=== PATIENT | female | born 1985 | race Caucasian/White ===

== ENCOUNTER 2020-06-17 19:47 | Inpatient (IN) | payer OTHER ==
[2020-06-17] MEDS ORDERED: Ondansetron 4 MG/2 ML SDV IVPUSH PRN (21:38)
[2020-06-17] MEDS ORDERED: Sodium Chloride 0.9% 10 ML Syringe FLUSH PRN (21:38)
[2020-06-17] MEDS ORDERED: Nalbuphine 10 MG/1 ML Vial IVPUSH PRN (21:38)
[2020-06-17] MEDS ORDERED: Oxytocin/Lactated Ringers 10 UNIT/1,000 ML BAG IV SCH (21:45)
--- NOTE | 2020-06-17 22:06 | PCM.LDHP ---
L&D History of Present Illness - General Date of Service: 06/17/20 Admit Problem/Dx: Patient Status Order with Admit Dx/Problem 06/17/20 20:07 Patient Status [ADT] Routine 06/17/20 21:38 Patient Status [ADT] Routine Admission Diagnosis/Problem Admission Diagnosis/Problem Source of Information: Patient History Limitations: Reports: No Limitations - History of Present Illness Introduction:: Patient at 34 y/o at 38 2/7 wks who presents with SROM. Happened at 1830. Doing well. Some contractions. Picking up in intensity - Related Data Allergies/Adverse Reactions: Allergies Allergy/AdvReac Type Severity Reaction Status Date / Time No Known Allergies Allergy Verified 01/28/19 08:25 Home Medications: Home Meds Pnv No.95/Ferrous Fum/Folic AC [ Caplet] 1 tab PO DAILY 01/28/19 [History] miSOPROStoL [Cytotec] 400 mcg PO ONETIME #2 tablet 01/28/19 [Rx] oxyCODONE HCl/Acetaminophen [Percocet 5-325 mg Tablet] 1 - 2 each PO Q4H PRN #14 tablet 01/28/19 [Rx] Past Medical History - Past Health History Medical/Surgical History: Denies Medical/Surgical History - Past Surgical History Other Surgical History Comment: No past surgical history Social & Family History - Tobacco Use Tobacco Use Status *Q: Never Tobacco User - Caffeine Use Caffeine Use: Reports: Coffee - Alcohol Use Alcohol Use History: No - Recreational Drug Use Recreational Drug Use: No - Living Situation & Occupation Living situation: Reports: H&P Review of Systems - Review of Systems: Review Of Systems: See Below General: Reports: No Symptoms Pulmonary: Reports: No Symptoms Cardiovascular: Reports: No Symptoms Gastrointestinal: Reports: No Symptoms Genitourinary: Reports: No Symptoms Musculoskeletal: Reports: No Symptoms Psychiatric: Reports: No Symptoms Neurological: Reports: No Symptoms L&D Exam - Exam Exam: See Below - Vital Signs Weight: 74.191 kg - OB Specific Contraction Intensity: Moderate Movement: Active Heart Tones: Present Heart Tones per Min: 145 Heart Rate (FHR) Variability: Moderate (6-25 bmp) Presentation: Vertex - Rodney Score Rodney Score Cervix Position: Anterior Rodney Score Consistency: Soft Rodney Score Effacement: >80% Rodney Score Dilation: 1-2 cm Rodney Score 's Station: -2 Rodney Score Total: 9 - Exam General: Alert, Oriented, Cooperative Lungs: Clear to Auscultation, Normal Respiratory Effort Cardiovascular: Regular Rate, Regular Rhythm GI/Abdominal Exam: Soft, Non-Tender Genitourinary: Normal external exam Extremities: Normal Inspection Skin: Warm, Dry, Intact - Patient Data Result Diagrams: 06/17/20 21:55 - Problem List (1) 38 weeks gestation of SNOMED Code(s): 64340528 ICD Code: Z3A.38 - 38 WEEKS GESTATION OF Status: Acute Current Visit: Yes (2) Spontaneous rupture of amniotic membranes SNOMED Code(s): 134697203 ICD Code: [id number] - Status: Acute Current Visit: Yes Problem List Initiated/Reviewed/Updated: Yes Orders Last 24hrs: Active Orders 24 hr Category Date Time Status Patient Status [ADT] Routine ADT 06/17/20 20:07 Active Patient Status [ADT] Routine ADT 06/17/20 21:38 Active Activity as Tolerated [RC] PFP Care 06/17/20 21:38 Active Communication Order [RC] ASDIRECTED Care 06/17/20 21:38 Active Heart Tones [RC] ASDIRECTED Care 06/17/20 21:39 Active Non Stress Test [RC] PER UNIT ROUTINE Care 06/17/20 20:07 Active Notify Provider [RC] PFP Care 06/17/20 21:38 Active Notify Provider [RC] PRN Care 06/17/20 21:38 Active Peripheral IV Care [RC] . DIRECTED Care 06/17/20 21:39 Active Vital Signs [RC] PER UNIT ROUTINE Care 06/17/20 20:07 Active Regular Diet [DIET] Diet 06/18/20 Breakfast Active AMNISURE RUPTURE MEMBRAN [BF] Stat Lab 06/17/20 20:07 Ordered CBC WITH AUTO DIFF [HEME] Stat Lab 06/17/20 21:55 Received RAPID PLASMA REAGIN,RPR [CHEM] Routine Lab 06/17/20 21:55 Received Lactated Ringers [Ringers, Lactated] 1,000 ml Med 06/17/20 21:45 Active IV ASDIRECTED Nalbuphine [Nubain] Med 06/17/20 21:38 Active 10 mg IVPUSH Q2H PRN Ondansetron [Zofran] Med 06/17/20 21:38 Active 4 mg IVPUSH Q4H PRN Oxytocin/Lactated Ringers [Pitocin in LR 10 Units/1,000 Med 06/17/20 21:45 Active ML] 10 unit in 1,000 ml IV TITRATE Sodium Chloride 0.9% [Saline Flush] Med 06/17/20 21:38 Active 10 ml FLUSH ASDIRECTED PRN Electronic Heart Tones Ext w TOCO [WOMSER] Oth 06/17/20 21:38 Ordered Routine Electronic Heart Tones Internal [WOMSER] Per Unit Oth 06/17/20 21:38 Ordered Routine Peripheral IV Insertion Adult [OM.PC] Routine Oth 06/17/20 21:38 Ordered Resuscitation Status Routine Resus Stat 06/17/20 20:07 Ordered Medication Orders Lactated Ringer's (Ringers, Lactated) 1,000 mls @ 100 mls/hr IV ASDIRECTED SANTI Oxytocin/Lactated Ringer's (Pitocin In Lr 10 Units/1,000 Ml) 10 unit in 1,000 mls @ 12 mls/hr IV TITRATE SANTI; Protocol Nalbuphine HCl (Nubain) 10 mg IVPUSH Q2H PRN PRN Reason: Pain Ondansetron HCl (Zofran) 4 mg IVPUSH Q4H PRN PRN Reason: Nausea/Vomiting Sodium Chloride (Saline Flush) 10 ml FLUSH ASDIRECTED PRN PRN Reason: Keep Vein Open Assessment/Plan Comment:: * Labs done * Previously had COVID at 32 weeks, no need for re-testing * GBS negative, no need for antibiotics * Pain management per patient preference * Anticipate
[2020-06-17] MEDS: Lactated Ringers 1,000 ML IV SCH (23:40)
[2020-06-18] MEDS ORDERED: Bupivacaine 0.25% 10 ML SDV ONE
[2020-06-18] MEDS ORDERED: ePHEDrine 50 MG/ML SDV IVPUSH PRN (00:04)
[2020-06-18] MEDS ORDERED: diphenhydrAMINE 50 MG/ML SDV IVPUSH PRN (00:04)
[2020-06-18] MEDS ORDERED: fentaNYL 100 MCG/2 ML SDV EPIDUR PRN (00:04)
[2020-06-18] MEDS: Bupivacaine/fentaNYL/NS 100 ML Bag EPIDUR PRN ×2 (00:30→08:59)
[2020-06-18] MEDS: Lactated Ringers 1,000 ML IV SCH ×3 (00:41→08:13)
--- NOTE | 2020-06-18 00:55 | PCM.PREANE ---
Preanesthetic Assessment - Procedure Proposed Procedure: Labor Epidural - Anesthesia/Transfusion/Family Hx Anesthesia History: No Prior Anesthesia Family History of Anesthesia Reaction: No - Review of Systems General: No Symptoms Pulmonary: No Symptoms Cardiovascular: No Symptoms Gastrointestinal: Abdominal Pain (Uterine) Neurological: No Symptoms Other: Reports: None (Sciatic symptoms earlier in the pregnacny. ) - Physical Assessment Height: 1.6 m Weight: 74.191 kg ASA Class: 2 Mental Status: Alert & Oriented x3 Airway Class: Mallampati = 1 Dentition: Reports: Normal Dentition Thyro-Mental Finger Breadths: 3 Mouth Opening Finger Breadths: 3 ROM/Head Extension: Full Lungs: Clear to Auscultation, Normal Respiratory Effort Cardiovascular: Regular Rate, Regular Rhythm - Lab Values: Laboratory Last Values WBC 10.61 K/mm3 (3.98-10.04) H 06/17/20 21:55 RBC 3.96 M/mm3 (3.98-5.22) L 06/17/20 21:55 Hgb 12.2 gm/dl (11.2-15.7) 06/17/20 21:55 Hct 36.9 % (34.1-44.9) 06/17/20 21:55 MCV 93.2 fl (79.4-94.8) D 06/17/20 21:55 MCH 30.8 pg (25.6-32.2) 06/17/20 21:55 MCHC 33.1 g/dl (32.2-35.5) 06/17/20 21:55 RDW Std Deviation 43.5 fL (36.4-46.3) 06/17/20 21:55 Plt Count 144 K/mm3 (182-369) L 06/17/20 21:55 MPV 11.8 fl (9.4-12.3) 06/17/20 21:55 Neut % (Auto) 64.3 % (34.0-71.1) 06/17/20 21:55 Lymph % (Auto) 23.8 % (19.3-51.7) 06/17/20 21:55 [place] % (Auto) 10.3 % (4.7-12.5) 06/17/20 21:55 Eos % (Auto) 1.2 (0.7-5.8) 06/17/20 21:55 Baso % (Auto) 0.1 % (0.1-1.2) 06/17/20 21:55 Neut # (Auto) 6.83 K/mm3 (1.56-6.13) H 06/17/20 21:55 Lymph # (Auto) 2.52 K/mm3 (1.18-3.74) 06/17/20 21:55 [place] # (Auto) 1.09 K/mm3 (0.24-0.36) H 06/17/20 21:55 Eos # (Auto) 0.13 K/mm3 (0.04-0.36) 06/17/20 21:55 Baso # (Auto) 0.01 K/mm3 (0.01-0.08) 06/17/20 21:55 - Allergies Allergies/Adverse Reactions: Allergies Allergy/AdvReac Type Severity Reaction Status Date / Time No Known Allergies Allergy Verified 01/28/19 08:25 - Acknowledgements Anesthesia Type Planned: Epidural Pt an Appropriate Candidate for the Planned Anesthesia: Yes Alternatives and Risks of Anesthesia Discussed w Pt/Guardian: Yes Pt/Guardian Understands and Agrees with Anesthesia Plan: Yes PreAnesthesia Questionnaire - Past Health History Medical/Surgical History: Denies Medical/Surgical History - HOME MEDS Home Medications: Home Meds Pnv No.95/Ferrous Fum/Folic AC [ Caplet] 1 tab PO DAILY 01/28/19 [History] miSOPROStoL [Cytotec] 400 mcg PO ONETIME #2 tablet 01/28/19 [Rx] oxyCODONE HCl/Acetaminophen [Percocet 5-325 mg Tablet] 1 - 2 each PO Q4H PRN #14 tablet 01/28/19 [Rx] - CURRENT (IN HOUSE) MEDS Current Meds: Current Medications Diphenhydramine HCl (Benadryl) 25 mg IVPUSH Q6H PRN PRN Reason: pruritis Ephedrine Sulfate (Ephedrine Sulfate) 5 mg IVPUSH ASDIRECTED PRN PRN Reason: Hypotension Fentanyl (Sublimaze) 100 mcg EPIDUR Q3H PRN PRN Reason: Pain Last Admin: 06/18/20 00:31 Dose: 100 mcg Documented by: Fentanyl/Bupivacaine HCl (Fentanyl/Bupivacaine/Ns 2 Mcg-0.125% 100 Ml) 100 ml EPIDUR ASDIRECTED PRN PRN Reason: Pain Lactated Ringer's (Ringers, Lactated) 1,000 mls @ 100 mls/hr IV ASDIRECTED SANTI Last Admin: 06/17/20 23:40 Dose: 999 mls/hr Documented by: Oxytocin/Lactated Ringer's (Pitocin In Lr 10 Units/1,000 Ml) 10 unit in 1,000 mls @ 12 mls/hr IV TITRATE SANTI; Protocol Nalbuphine HCl (Nubain) 10 mg IVPUSH Q2H PRN PRN Reason: Pain Ondansetron HCl (Zofran) 4 mg IVPUSH Q4H PRN PRN Reason: Nausea/Vomiting Sodium Chloride (Saline Flush) 10 ml FLUSH ASDIRECTED PRN PRN Reason: Keep Vein Open
[2020-06-18] MEDS ORDERED: Misoprostol 200 MCG Tab ONE (12:35)
[2020-06-18] MEDS ORDERED: Misoprostol 200 MCG Tab PO STA (12:51)
--- NOTE | 2020-06-18 12:51 | PCM.DEL ---
L & D Note - General Info Date of Service: 06/18/20 - Delivery Note Labor: Spontaneous Delivery Outcome: Livebirth Delivery Method: Spontaneous Vaginal Delivery-Single Delivery Mode: Vacuum Extraction Presentation: Left Occiput Anterior (TONY) Nuchal Cord: None Anesthesia Type: Epidural Amniotic Fluid Description: Clear Episiotomy Type: None Laceration: 3rd Degree Suture type: Vicryl Suture size: 2-0 Placenta: Intact, Spontaneous Cord: 3 Vessels Estimated Blood Loss: 250 Resuscitation Needed: Yes [place]: Bulb Syringe, Stimulated, Warmed, [place] Used, Warmer Used Delivery Comments (Free Text/Narrative):: The patient was found to be complete and began pushing. After about 4.5 hours of pushing she became fatigued. Sterile vaginal exam complete/complete/+3 station. head in TONY presentation. Maternal pushing effort was good and the pelvis was felt to be adequate for an instrument assisted delivery. Given maternal exhaustion the decision was made to proceed with vacuum assisted vaginal delivery. The mushroom cup was placed without difficulty with care to avoid the vaginal side porter at 1225. Total pressure applied 550 mm Hg. Total pop offs 0. With two contractions head delivered. Suction was removed following delivery of the head. No nuchal cord. The remainder of the delivered without difficulty at 1228. placed on maternal abdomen. Cord clamped and cut. Cord blood obtained. Placenta allowed time to separate and expelled intact. Slight poor tone noted and so given 600 mcg of buccal cytotec. Inspection of the perineum following delivery with 3rd degree la ceration. Not complete transection of rectal sphincter, but disruption of capsule. This was reinforced with several interrupted sutures of 0 vicryl. Remaining portion of laceration repaired with a 2-0 Vicryl in typical running fashion Vacuum Extractor Progress Note - Alternative Labor Strategies Considered Alternative Labor Strategies Considered:: Reports: Yes Strategies Considered:: Reports: Contraction Intensity Adequate, Position Changes Used to Facilitate Rotation & Descent, Empty Bladder Indications Considered:: Reports: Yes Indications:: Reports: Prolonged 2nd Stage Time Out:: Reports: Yes - Patient Prepared Patient Prepared:: Reports: Yes Informed Consent:: Reports: Yes, Verbal Risks: Reports: Yes Risks Include:: Reports: Laceration, Shoulder Dystocia, Maternal Injury Anesthesia/Analgesia Adequate:: Reports: Yes - Probability of Success High Probability of Success:: Reports: Yes Weight Estimated:: Reports: AGA Patient Diabetic:: Reports: No Pelvis Adequate:: Reports: Yes Position:: TONY Asynclitic:: Reports: No Station:: +3 - Application Time Maximum Application Time & Number of Pop-Offs Predetermined:: Reports: Yes Maximum Pressure Maintained in [place] (cm Hg):: 550 Total Application Time (min): *max=20min: 3 Number of Times Cup Disengaged:: 0 Type of Vacuum Used:: Reports: Cup: Mushroom type Vacuum Extraction: Successful - Exit Strategy Exit strategy available:: Reports: Yes and resuscitation teams readily available:: Reports: Yes - General Info Date of Service: 06/18/20 - Patient Data Vitals - Most Recent: Last Vital Signs Temp 36.6 C 06/17/20 20:07 Pulse 83 06/17/20 20:07 Resp 15 06/17/20 20:07 BP 126/77 06/17/20 20:07 Pulse Ox 98 06/17/20 20:07 Weight - Most Recent: 74.191 kg - Problem List & Annotations (1) 38 weeks gestation of SNOMED Code(s): 90559677 Code(s): Z3A.38 - 38 WEEKS GESTATION OF Status: Acute Current Visit: Yes (2) Spontaneous rupture of amniotic membranes SNOMED Code(s): 229209520 Code(s): KWL3521 - Status: Acute Current Visit: Yes (3) Maternal exhaustion complicating labor and delivery SNOMED Code(s): 047318840 Code(s): O75.81 - MATERNAL EXHAUSTION COMPLICATING LABOR AND DELIVERY Status: Acute Current Visit: Yes (4) Vacuum-assisted vaginal delivery SNOMED Code(s): 50927855451647398 Code(s): Z37.9 - OUTCOME OF DELIVERY, UNSPECIFIED Status: Acute Current Visit: Yes - Problem List Review Problem List Initiated/Reviewed/Updated: Yes - My Orders Last 24 Hours: My Active Orders 06/17/20 20:07 Patient Status [ADT] Routine Vital Signs [RC] 09,15,21,03 AMNISURE RUPTURE MEMBRAN [BF] Stat Resuscitation Status Routine 06/17/20 21:38 Patient Status [ADT] Routine Activity as Tolerated [RC] PFP Communication Order [RC] ASDIRECTED Notify Provider [RC] PFP Notify Provider [RC] PRN Nalbuphine [Nubain] 10 mg IVPUSH Q2H PRN Ondansetron [Zofran] 4 mg IVPUSH Q4H PRN Sodium Chloride 0.9% [Saline Flush] 10 ml FLUSH ASDIRECTED PRN Electronic Heart Tones Ext w TOCO [WOMSER] Routine Electronic Heart Tones Internal [WOMSER] Per Unit Routine Peripheral IV Insertion Adult [OM.PC] Routine 06/17/20 21:39 Peripheral IV Care [RC] Q2HR 06/17/20 21:45 Lactated Ringers [Ringers, Lactated] 1,000 ml IV ASDIRECTED Oxytocin/Lactated Ringers [Pitocin in LR 10 Units/1,000 ML] 10 unit in 1,000 ml IV TITRATE 06/17/20 21:55 RAPID PLASMA REAGIN,RPR [CHEM] Routine 06/18/20 Breakfast Regular Diet [DIET] - Assessment Assessment:: PPD#0 - Plan Plan:: * Routine cares * Breast feeding * Discharge home in 1-2 days
[2020-06-18] MEDS ORDERED: Acetaminophen 325 MG Tab PO PRN (13:26)
[2020-06-18] MEDS ORDERED: Witch Hazel Medicated Pads 40/Jar TOP PRN (13:26)
[2020-06-18] MEDS ORDERED: Benzocaine/Menthol 20%-0.5% Spray 56 GM Canister TOP PRN (13:26)
[2020-06-18] MEDS: Ibuprofen 600 MG Tab PO PRN ×2 (16:04→20:14)
[2020-06-19] MEDS: Ibuprofen 600 MG Tab PO PRN ×6 (00:35→22:32)
--- NOTE | 2020-06-19 06:45 | PCM.PNPP ---
- General Info Date of Service: 06/19/20 Functional Status: Reports: Pain Controlled, Tolerating Diet, Ambulating, Urinating - Review of Systems General: Reports: No Symptoms Pulmonary: Reports: No Symptoms Cardiovascular: Reports: No Symptoms Gastrointestinal: Reports: No Symptoms Genitourinary: Reports: No Symptoms Musculoskeletal: Reports: No Symptoms Neurological: Reports: No Symptoms - Patient Data Vital Signs - Most Recent: Last Vital Signs Temp 36.4 C 06/19/20 05:02 Pulse 68 06/19/20 05:02 Resp 15 06/19/20 05:02 BP 109/65 06/19/20 05:02 Pulse Ox 98 06/19/20 05:02 Weight - Most Recent: 74.191 kg I&O - Last 24 Hours: Intake & Output 06/18/20 06/18/20 06/19/20 14:59 22:59 06:59 Intake Total 6120 Output Total 1600 Balance -1600 6120 Lab Results - Last 24 Hours: Laboratory Results - last 24 hr 06/17/20 Range/Units 21:55 RPR Non-reactive (NONREACTIVE) Med Orders - Current: Current Medications Acetaminophen (Tylenol) 650 mg PO Q4H PRN PRN Reason: mild pain or fever Benzocaine/Menthol (Dermoplast Pain Relief [place]) 0 gm TOP ASDIRECTED PRN PRN Reason: Perineal Comfort Measure Last Admin: 06/18/20 14:43 Dose: 1 can Documented by: Docusate Sodium (Colace) 100 mg PO BID PRN PRN Reason: Constipation Ibuprofen (Motrin) 600 mg PO Q4H PRN PRN Reason: Mild pain or fever Last Admin: 06/19/20 04:41 Dose: 600 mg Documented by: Aguila Aguirre) 1 pad TOP ASDIRECTED PRN PRN Reason: Perineal Comfort Measure Last Admin: 06/18/20 14:43 Dose: 1 tub Documented by: Discontinued Medications Diphenhydramine HCl (Benadryl) 25 mg IVPUSH Q6H PRN PRN Reason: pruritis Ephedrine Sulfate (Ephedrine Sulfate) 5 mg IVPUSH ASDIRECTED PRN PRN Reason: Hypotension Fentanyl (Sublimaze) 100 mcg EPIDUR Q3H PRN PRN Reason: Pain Last Admin: 06/18/20 00:31 Dose: 100 mcg Documented by: Fentanyl/Bupivacaine HCl (Fentanyl/Bupivacaine/Ns 2 Mcg-0.125% 100 Ml) 100 ml EPIDUR ASDIRECTED PRN PRN Reason: Pain Last Admin: 06/18/20 08:59 Dose: 100 ml Documented by: Lactated Ringer's (Ringers, Lactated) 1,000 mls @ 100 mls/hr IV ASDIRECTED SANTI Last Admin: 06/18/20 08:13 Dose: 100 mls/hr Documented by: Oxytocin/Lactated Ringer's (Pitocin In Lr 10 Units/1,000 Ml) 10 unit in 1,000 mls @ 12 mls/hr IV TITRATE SANTI; Protocol Last Titration: 06/18/20 12:28 Dose: 83.33 munits/min, 500 mls/hr Documented by: Misoprostol (Cytotec) Confirm Administered Dose 600 mcg .ROUTE .STK-MED ONE Stop: 06/18/20 12:36 Last Admin: 06/18/20 13:23 Dose: Not Given Documented by: Misoprostol (Cytotec) 600 mcg PO NOW STA Stop: 06/18/20 12:52 Last Admin: 06/18/20 12:35 Dose: 600 mcg Documented by: Nalbuphine HCl (Nubain) 10 mg IVPUSH Q2H PRN PRN Reason: Pain Ondansetron HCl (Zofran) 4 mg IVPUSH Q4H PRN PRN Reason: Nausea/Vomiting Sodium Chloride (Saline Flush) 10 ml FLUSH ASDIRECTED PRN PRN Reason: Keep Vein Open - Interaction Infant Disposition, : [place] in Room with Family Interaction: Holding Feeding: Attempted ; Nursed Fair/Poor Support Person: - Recovery Exam Fundal Tone: Firm Fundal Level: At Umbilicus Fundal Placement: Midline Lochia Amount: Small Lochia Color: Rubra/Red Perineum Description: Edematous, Other (see below) Other Perinuem Description: 3rd degree with repair Episiotomy/Laceration: Approximated Bladder Status: Voiding Urinary Elimination: Voided - Exam General: Alert, Oriented, Cooperative GI/Abdominal Exam: Soft, Non-Tender Extremities: Normal Inspection Skin: Warm, Dry, Intact - Problem List & Annotations (1) 38 weeks gestation of SNOMED Code(s): 10501026 Code(s): Z3A.38 - 38 WEEKS GESTATION OF Status: Acute Current Visit: Yes (2) Spontaneous rupture of amniotic membranes SNOMED Code(s): 767726963 Code(s): FCA7273 - Status: Acute Current Visit: Yes (3) Maternal exhaustion complicating labor and delivery SNOMED Code(s): 435220734 Code(s): O75.81 - MATERNAL EXHAUSTION COMPLICATING LABOR AND DELIVERY Status: Acute Current Visit: Yes (4) Vacuum-assisted vaginal delivery SNOMED Code(s): 98450032531662187 Code(s): Z37.9 - OUTCOME OF DELIVERY, UNSPECIFIED Status: Acute Current Visit: Yes - Problem List Review Problem List Initiated/Reviewed/Updated: Yes - My Orders Last 24 Hours: My Active Orders 06/18/20 Lunch Regular Diet [DIET] 06/18/20 13:26 Acetaminophen [TylenoL] 650 mg PO Q4H PRN Benzocaine/Menthol [Dermoplast Pain Relief [place]] See Dose Instructions TOP ASDIRECTED PRN Docusate Sodium [Colace] 100 mg PO BID PRN Ibuprofen [Motrin] 600 mg PO Q4H PRN witch Casi [Tucks] 1 pad TOP ASDIRECTED PRN Heat Therapy [OM.PC] PRN 06/18/20 13:26 Activity as Tolerated [RC] PER UNIT ROUTINE Vital Signs [RC] 03,09,15,21 Assess Lochia [WOMSER] Per Unit Routine Assess Uterine Involution [WOMSER] Per Unit Routine Breast Pump [WOMSER] Per Unit Routine Ice Therapy [OM.PC] Per Unit Routine Perineal Care [OM.PC] Per Unit Routine Peripheral IV Discontinue [OM.PC] Routine Sitz Bath [OM.PC] Per Unit Routine 06/19/20 13:26 Heat Therapy [OM.PC] PRN - Assessment Assessment:: PPD#1 - Plan Plan:: * Routine cares * Breast feeding * Discharge home tomorrow
[2020-06-19] MEDS: Docusate Sodium 100 MG Cap PO PRN ×2 (09:30→22:33)
--- NOTE | 2020-06-19 14:22 | PCM48HPAN ---
Post Anesthesia Note - EVALUATION WITHIN 48HRS OF ANESTHETIC Vital Signs in Normal Range: Yes Patient Participated in Evaluation: Yes Respiratory Function Stable: Yes Airway Patent: Yes Cardiovascular Function Stable: Yes Hydration Status Stable: Yes Pain Control Satisfactory: Yes Nausea and Vomiting Control Satisfactory: Yes Mental Status Recovered: Yes Vital Signs: Last Vital Signs Temp 36.5 C 06/19/20 07:46 Pulse 62 06/19/20 07:46 Resp 16 06/19/20 07:46 BP 114/72 06/19/20 07:46 Pulse Ox 98 06/19/20 07:46
[2020-06-20] MEDS: Ibuprofen 600 MG Tab PO PRN ×2 (04:05→09:55)
--- NOTE | 2020-06-20 06:55 | PCM.DCSUM1 ---
Discharge Summary - Discharge Data Discharge Date: 06/20/20 Discharge Disposition: Home, Self-Care 01 Condition: Good - Referral to Home Health Primary Care Physician: Lulu Richard MD - Discharge Diagnosis/Problem(s) (1) 38 weeks gestation of SNOMED Code(s): 30958139 ICD Code: Z3A.38 - 38 WEEKS GESTATION OF Status: Acute Current Visit: Yes (2) Spontaneous rupture of amniotic membranes SNOMED Code(s): 819342373 ICD Code: CNW5146 - Status: Acute Current Visit: Yes (3) Maternal exhaustion complicating labor and delivery SNOMED Code(s): 670840818 ICD Code: O75.81 - MATERNAL EXHAUSTION COMPLICATING LABOR AND DELIVERY Status: Acute Current Visit: Yes (4) Vacuum-assisted vaginal delivery SNOMED Code(s): 46437941566955254 ICD Code: Z37.9 - OUTCOME OF DELIVERY, UNSPECIFIED Status: Acute Current Visit: Yes - Patient Summary/Data Complications: None Consults: None Recommended Follow-up Testing/Procedures: Follow up in 3 weeks for check Hospital Course: 34 y/o at 38 2/7 wks who presented in labor. Did well. Did require vacuum assistance for delivery after about 4.5 hours of pushing. See delivery note. did well and was discharged home on PPD#2 - Patient Instructions Diet: Regular Diet as Tolerated Activity: As Tolerated Activity, Other: Pelvic rest for 6 weeks Driving: May Drive Today Showering/Bathing: May Shower Showering/Bathing, Other: May Bathe Notify Provider of: Fever, Increased Pain, Swelling and Redness, Drainage, Nausea and/or Vomiting - Discharge Plan *PRESCRIPTION DRUG MONITORING PROGRAM REVIEWED*: No *COPY OF PRESCRIPTION DRUG MONITORING REPORT IN PATIENT TRUPTI: No Home Medications: Home Meds Pnv No.95/Ferrous Fum/Folic AC [ Caplet] 1 tab PO DAILY 01/28/19 [History] Docusate Sodium [Colace] 100 mg PO BID PRN cap 06/19/20 [Rx] Ibuprofen [Motrin] 600 mg PO Q4H PRN tablet 06/19/20 [Rx] Patient Handouts: Care After Vaginal Delivery Referrals: Lulu Richard MD [Primary Care Provider] - (3 weeks for check ) - Discharge Summary/Plan Comment DC Time >30 min.: No - Patient Data Vitals - Most Recent: Last Vital Signs Temp 36.9 C 06/20/20 03:00 Pulse 81 06/20/20 03:00 Resp 16 06/20/20 03:00 BP 123/79 06/20/20 03:00 Pulse Ox 98 06/20/20 03:00 Weight - Most Recent: 74.191 kg I&O - Last 24 hours: Intake & Output 06/19/20 06/19/20 06/20/20 14:59 22:59 06:59 Intake Total 120 Balance 120 Med Orders - Current: Current Medications Acetaminophen (Tylenol) 650 mg PO Q4H PRN PRN Reason: mild pain or fever Benzocaine/Menthol (Dermoplast Pain Relief [place]) 0 gm TOP ASDIRECTED PRN PRN Reason: Perineal Comfort Measure Last Admin: 06/18/20 14:43 Dose: 1 can Documented by: Docusate Sodium (Colace) 100 mg PO BID PRN PRN Reason: Constipation Last Admin: 06/19/20 22:33 Dose: 100 mg Documented by: Ibuprofen (Motrin) 600 mg PO Q4H PRN PRN Reason: Mild pain or fever Last Admin: 06/20/20 04:05 Dose: 600 mg Documented by: Aguila Roldan ([facility]) 1 pad TOP ASDIRECTED PRN PRN Reason: Perineal Comfort Measure Last Admin: 06/18/20 14:43 Dose: 1 tub Documented by: Discontinued Medications Bupivacaine HCl (Sensorcaine-Mpf 0.25%) 10 ml .ROUTE .STK-MED ONE Stop: 06/18/20 00:01 Diphenhydramine HCl (Benadryl) 25 mg IVPUSH Q6H PRN PRN Reason: pruritis Ephedrine Sulfate (Ephedrine Sulfate) 5 mg IVPUSH ASDIRECTED PRN PRN Reason: Hypotension Fentanyl (Sublimaze) 100 mcg EPIDUR Q3H PRN PRN Reason: Pain Last Admin: 06/18/20 00:31 Dose: 100 mcg Documented by: Fentanyl/Bupivacaine HCl (Fentanyl/Bupivacaine/Ns 2 Mcg-0.125% 100 Ml) 100 ml EPIDUR ASDIRECTED PRN PRN Reason: Pain Last Admin: 06/18/20 08:59 Dose: 100 ml Documented by: Lactated Ringer's (Ringers, Lactated) 1,000 mls @ 100 mls/hr IV ASDIRECTED SANTI Last Admin: 06/18/20 08:13 Dose: 100 mls/hr Documented by: Oxytocin/Lactated Ringer's (Pitocin In Lr 10 Units/1,000 Ml) 10 unit in 1,000 mls @ 12 mls/hr IV TITRATE SANTI; Protocol Last Titration: 06/18/20 12:28 Dose: 83.33 munits/min, 500 mls/hr Documented by: Misoprostol (Cytotec) Confirm Administered Dose 600 mcg .ROUTE .STK-MED ONE Stop: 06/18/20 12:36 Last Admin: 06/18/20 13:23 Dose: Not Given Documented by: Misoprostol (Cytotec) 600 mcg PO NOW STA Stop: 06/18/20 12:52 Last Admin: 06/18/20 12:35 Dose: 600 mcg Documented by: Nalbuphine HCl (Nubain) 10 mg IVPUSH Q2H PRN PRN Reason: Pain Ondansetron HCl (Zofran) 4 mg IVPUSH Q4H PRN PRN Reason: Nausea/Vomiting Sodium Chloride (Saline Flush) 10 ml FLUSH ASDIRECTED PRN PRN Reason: Keep Vein Open
--- NOTE | 2020-06-20 06:55 | PCM.PNPP ---
- General Info Date of Service: 06/20/20 Functional Status: Reports: Pain Controlled, Tolerating Diet, Ambulating, Urinating - Review of Systems General: Reports: No Symptoms Pulmonary: Reports: No Symptoms Cardiovascular: Reports: No Symptoms Gastrointestinal: Reports: No Symptoms Genitourinary: Reports: No Symptoms Musculoskeletal: Reports: No Symptoms Neurological: Reports: No Symptoms - Patient Data Vital Signs - Most Recent: Last Vital Signs Temp 36.9 C 06/20/20 03:00 Pulse 81 06/20/20 03:00 Resp 16 06/20/20 03:00 BP 123/79 06/20/20 03:00 Pulse Ox 98 06/20/20 03:00 Weight - Most Recent: 74.191 kg I&O - Last 24 Hours: Intake & Output 06/19/20 06/19/20 06/20/20 14:59 22:59 06:59 Intake Total 120 Balance 120 Med Orders - Current: Current Medications Acetaminophen (Tylenol) 650 mg PO Q4H PRN PRN Reason: mild pain or fever Benzocaine/Menthol (Dermoplast Pain Relief [place]) 0 gm TOP ASDIRECTED PRN PRN Reason: Perineal Comfort Measure Last Admin: 06/18/20 14:43 Dose: 1 can Documented by: Docusate Sodium (Colace) 100 mg PO BID PRN PRN Reason: Constipation Last Admin: 06/19/20 22:33 Dose: 100 mg Documented by: Ibuprofen (Motrin) 600 mg PO Q4H PRN PRN Reason: Mild pain or fever Last Admin: 06/20/20 04:05 Dose: 600 mg Documented by: [place] ([place]) 1 pad TOP ASDIRECTED PRN PRN Reason: Perineal Comfort Measure Last Admin: 06/18/20 14:43 Dose: 1 tub Documented by: Discontinued Medications Bupivacaine HCl (Sensorcaine-Mpf 0.25%) 10 ml .ROUTE .STK-MED ONE Stop: 06/18/20 00:01 Diphenhydramine HCl (Benadryl) 25 mg IVPUSH Q6H PRN PRN Reason: pruritis Ephedrine Sulfate (Ephedrine Sulfate) 5 mg IVPUSH ASDIRECTED PRN PRN Reason: Hypotension Fentanyl (Sublimaze) 100 mcg EPIDUR Q3H PRN PRN Reason: Pain Last Admin: 06/18/20 00:31 Dose: 100 mcg Documented by: Fentanyl/Bupivacaine HCl (Fentanyl/Bupivacaine/Ns 2 Mcg-0.125% 100 Ml) 100 ml EPIDUR ASDIRECTED PRN PRN Reason: Pain Last Admin: 06/18/20 08:59 Dose: 100 ml Documented by: Lactated Ringer's (Ringers, Lactated) 1,000 mls @ 100 mls/hr IV ASDIRECTED SANTI Last Admin: 06/18/20 08:13 Dose: 100 mls/hr Documented by: Oxytocin/Lactated Ringer's (Pitocin In Lr 10 Units/1,000 Ml) 10 unit in 1,000 mls @ 12 mls/hr IV TITRATE SANTI; Protocol Last Titration: 06/18/20 12:28 Dose: 83.33 munits/min, 500 mls/hr Documented by: Misoprostol (Cytotec) Confirm Administered Dose 600 mcg .ROUTE .STK-MED ONE Stop: 06/18/20 12:36 Last Admin: 06/18/20 13:23 Dose: Not Given Documented by: Misoprostol (Cytotec) 600 mcg PO NOW STA Stop: 06/18/20 12:52 Last Admin: 06/18/20 12:35 Dose: 600 mcg Documented by: Nalbuphine HCl (Nubain) 10 mg IVPUSH Q2H PRN PRN Reason: Pain Ondansetron HCl (Zofran) 4 mg IVPUSH Q4H PRN PRN Reason: Nausea/Vomiting Sodium Chloride (Saline Flush) 10 ml FLUSH ASDIRECTED PRN PRN Reason: Keep Vein Open - Interaction Infant Disposition, : Hawks in Room with Family Interaction: Holding Infant Feeding: Attempted ; Nursed Fair/Poor Support Person: - Recovery Exam Fundal Tone: Firm Fundal Level: 1 Fingerbreadths Below Umbilicus Fundal Placement: Midline Lochia Amount: Small Lochia Color: Rubra/Red Perineum Description: Edematous, Other (see below) Other Perinuem Description: 3rd degree with repair Episiotomy/Laceration: Approximated Bladder Status: Voiding Urinary Elimination: Voided - Exam General: Alert, Oriented, Cooperative GI/Abdominal Exam: Soft, Non-Tender Extremities: Normal Inspection Skin: Warm, Dry, Intact - Problem List & Annotations (1) 38 weeks gestation of SNOMED Code(s): 27370756 Code(s): Z3A.38 - 38 WEEKS GESTATION OF Status: Acute Current Visit: Yes (2) Spontaneous rupture of amniotic membranes SNOMED Code(s): 359208327 Code(s): [id number] - Status: Acute Current Visit: Yes (3) Maternal exhaustion complicating labor and delivery SNOMED Code(s): 719010473 Code(s): O75.81 - MATERNAL EXHAUSTION COMPLICATING LABOR AND DELIVERY Status: Acute Current Visit: Yes (4) Vacuum-assisted vaginal delivery SNOMED Code(s): 28611709541020714 Code(s): Z37.9 - OUTCOME OF DELIVERY, UNSPECIFIED Status: Acute Current Visit: Yes - Problem List Review Problem List Initiated/Reviewed/Updated: Yes - My Orders Last 24 Hours: My Active Orders 06/19/20 13:26 Heat Therapy [OM.PC] PRN 06/20/20 06:54 Ready for Discharge [RC] PER UNIT ROUTINE - Assessment Assessment:: PPD#2 - Plan Plan:: * Routine cares * Breast feeding * Discharge home today
[2020-06-20] MEDS: Docusate Sodium 100 MG Cap PO PRN (09:55)
== END 2020-06-20 10:35 | disposition home or self-care (01) | DRG 768 ==
LOC: JD.OBCHECK 19:47 → JD.OB 19:51 → JD.OBCHECK 21:38 → JD.OB 21:39 → OBSVTOIN 06-18 12:28 → JD.OB 06-18 12:29
PROVIDERS: ADMIT Obstetrics & Gynecology; ATTEND Obstetrics & Gynecology
PROC: 10D07Z6 Extraction of Products of Conception, Vacuum, Via Natural or Artificial Opening (ICD-10-PCS; principal; 2020-06-18)
PROC: 0DQR0ZZ Repair Anal Sphincter, Open Approach (ICD-10-PCS; 2020-06-18)
PROC: 3E0R3BZ Introduction of Anesthetic Agent into Spinal Canal, Percutaneous Approach (ICD-10-PCS; 2020-06-18)
PROC: 00HU33Z Insertion of Infusion Device into Spinal Canal, Percutaneous Approach (ICD-10-PCS; 2020-06-18)
DX: O75.81 Maternal exhaustion complicating labor and delivery (principal); Z37.0 Single live birth; O70.20 Third degree perineal laceration during delivery, unspecified; Z3A.38 38 weeks gestation of pregnancy; Z09 Encounter for follow-up examination after completed treatment for conditions other than malignant neoplasm; Z86.19 Personal history of other infectious and parasitic diseases
CPT/HCPCS: 01967; 36415; 51701; 51702; 59025; 85025; 86592; A9270-GY; J2590; J3010; J3490; J7120

== ENCOUNTER 2022-02-25 05:17 | Inpatient (IN) | payer BC ==
[~2022-02-25 05:17] MED LIST: Bupivacaine 0.25% 10 ML SDV ONE
[2022-02-25] MEDS ORDERED: Nalbuphine HCl 10 MG/ 1ML Amp IVPUSH PRN (06:47)
[2022-02-25] MEDS ORDERED: Sodium Chloride 0.9% 10 ML Syringe FLUSH PRN (06:47)
[2022-02-25] MEDS ORDERED: Oxytocin/Lactated Ringers 10 UNIT/1,000 ML BAG IV SCH ×2 (07:00)
[2022-02-25] MEDS: Lactated Ringers 1,000 ML IV SCH ×3 (07:13→09:28)
[2022-02-25] MEDS ORDERED: ePHEDrine 50 MG/ML SDV IVPUSH PRN (07:46)
[2022-02-25] MEDS ORDERED: Bupivacaine/fentaNYL/NS 100 ML Bag EPIDUR PRN (07:46)
[2022-02-25] MEDS ORDERED: fentaNYL 100 MCG/2 ML SDV EPIDUR PRN (07:46)
[2022-02-25] MEDS ORDERED: diphenhydrAMINE 50 MG/ML SDV IVPUSH PRN (07:46)
[2022-02-25] MEDS ORDERED: Sodium Chloride 0.9% 10 ML Syringe FLUSH SCH (09:00)
[2022-02-25] MEDS ORDERED: Witch Hazel Medicated Pads 40/Jar TOP PRN (12:30)
[2022-02-25] MEDS ORDERED: Docusate Sodium 100 MG Cap PO PRN (12:30)
[2022-02-25] MEDS ORDERED: Benzocaine/Menthol 20%-0.5% Spray 78 GM Cannister TOP PRN (12:30)
[2022-02-25] MEDS: Ibuprofen 600 MG Tab PO PRN (18:45)
[2022-02-25] MEDS: Acetaminophen 325 MG Tab PO PRN (20:45)
[2022-02-26] MEDS: Ibuprofen 600 MG Tab PO PRN ×2 (04:28→10:28)
[2022-02-26] MEDS: Acetaminophen 325 MG Tab PO PRN (06:23)
== END 2022-02-26 13:45 | disposition home or self-care (01) | DRG 560 ==
LOC: JD.OBCHECK 05:17 → JD.OB 05:21 → JD.OBCHECK 07:00 → JD.OB 07:00 → OBSVTOIN 12:07 → JD.OB 12:08
PROVIDERS: ADMIT Obstetrics & Gynecology; ATTEND Obstetrics & Gynecology
PROC: 10E0XZZ Delivery of Products of Conception, External Approach (ICD-10-PCS; principal; 2022-02-25)
PROC: 10907ZC Drainage of Amniotic Fluid, Therapeutic from Products of Conception, Via Natural or Artificial Opening (ICD-10-PCS; 2022-02-25)
PROC: 0KQM0ZZ Repair Perineum Muscle, Open Approach (ICD-10-PCS; 2022-02-25)
PROC: 3E0R3BZ Introduction of Anesthetic Agent into Spinal Canal, Percutaneous Approach (ICD-10-PCS; 2022-02-25)
PROC: 00HU33Z Insertion of Infusion Device into Spinal Canal, Percutaneous Approach (ICD-10-PCS; 2022-02-25)
DX: O70.1 Second degree perineal laceration during delivery (principal); Z3A.39 39 weeks gestation of pregnancy; Z37.0 Single live birth
CPT/HCPCS: 36415; 51702; 59025; 59409; 85025; 86592; 86850; 86900; 86901; A9270-GY; J2590; J3010; J3490; J7120

== ENCOUNTER 2023-10-12 04:14 | Inpatient (IN) | payer BC ==
[2023-10-12] MEDS ORDERED: Lidocaine 1% 50 ML MDV INJECT PRN (05:08)
[2023-10-12] MEDS ORDERED: Nalbuphine HCl 10 MG/ 1ML Amp IVPUSH PRN (05:08)
[2023-10-12] MEDS ORDERED: Ondansetron 4 MG/2 ML SDV IVPUSH PRN (05:08)
[2023-10-12] MEDS ORDERED: Sodium Chloride 0.9% 10 ML Syringe FLUSH PRN (05:08)
[2023-10-12 05:49] LABS: BASOPHILS PERCENT AUTO 0.2 % (0.0-1.0); EOSINOPHILS ABSOLUTE AUTO 0.1 K/mm3 (0.0-0.4); EOSINOPHILS PERCENT AUTO 0.5 % (0.0-6.0); HEMATOCRIT 35.8 % (37.0-47.0); HEMOGLOBIN 12.4 gm/dl (12.0-16.0); IMMATURE GRAN ABSOLUTE AUTO 0.06 K/mm3 (0.00-0.05); IMMATURE GRAN PERCENT AUTO 0.6 % (0.0-0.4); LYMPHOCYTES ABSOLUTE AUTO 2.2 K/mm3 (1.0-4.8); LYMPHOCYTES PERCENT AUTO 21.1 % (24.0-44.0); MEAN CORPUSCULAR HGB CONC 34.6 g/dl (32.0-36.0); MEAN CORPUSCULAR VOLUME 86.5 fl (83.0-99.0); MEAN PLATELET VOLUME 11.2 fl (9.4-12.3); MONOCYTES ABSOLUTE AUTO 0.7 K/mm3 (0.0-0.8); MONOCYTES PERCENT AUTO 6.5 % (0.0-8.0); NEUTROPHILS ABSOLUTE AUTO 7.3 K/mm3 (1.8-7.7); NEUTROPHILS PERCENT AUTO 71.1 % (41.0-71.0); PLATELET COUNT,PLT 147 K/mm3 (150-400); RED BLOOD CELL COUNT 4.14 M/mm3 (4.10-5.30); WHITE BLOOD CELL COUNT,WBC 10.29 K/mm3 (3.9-11.3)
[2023-10-12] MEDS ORDERED: Nalbuphine 10 MG/ML Syringe IVPUSH PRN (07:15)
[2023-10-12] MEDS ORDERED: Sodium Chloride 0.9% 10 ML Syringe FLUSH SCH (09:00)
[2023-10-12] MEDS: Oxytocin/Lactated Ringers 30 UNIT/500 ML BAG IV SCH ×2 (09:18→13:50)
[2023-10-12] MEDS: Lactated Ringers 1,000 ML IV SCH (09:18)
[2023-10-12] MEDS ORDERED: diphenhydrAMINE 50 MG/ML SDV IVPUSH PRN (10:15)
[2023-10-12] MEDS ORDERED: ePHEDrine 50 MG/ML SDV IVPUSH PRN (10:15)
[2023-10-12] MEDS: fentaNYL 100 MCG/2 ML SDV EPIDUR PRN (10:38)
[2023-10-12] MEDS: Bupivacaine/fentaNYL/NS 100 ML Bag EPIDUR PRN (10:39)
[2023-10-12] MEDS ORDERED: Acetaminophen 325 MG Tab PO PRN (15:53)
[2023-10-12] MEDS ORDERED: Benzocaine/Menthol 20%-0.5% Spray 78 GM Cannister TOP PRN (15:53)
[2023-10-12] MEDS ORDERED: Witch Hazel Medicated Pads 40/Jar TOP PRN (15:53)
[2023-10-12] MEDS ORDERED: Docusate Sodium 100 MG Cap PO PRN (15:53)
[2023-10-12] MEDS: Ibuprofen 600 MG Tab PO PRN (20:29)
== END 2023-10-13 16:30 | disposition home or self-care (01) | DRG 560 ==
LOC: JD.OB 04:27 → OBSVTOIN 13:49 → JD.OB 13:50
PROVIDERS: ADMIT Obstetrics & Gynecology; ATTEND Obstetrics & Gynecology
PROC: 10E0XZZ Delivery of Products of Conception, External Approach (ICD-10-PCS; principal; 2023-10-12)
PROC: 0HQ9XZZ Repair Perineum Skin, External Approach (ICD-10-PCS; 2023-10-12)
DX: O42.02 Full-term premature rupture of membranes, onset of labor within 24 hours of rupture (principal); Z3A.39 39 weeks gestation of pregnancy; Z37.0 Single live birth; O70.0 First degree perineal laceration during delivery
CPT/HCPCS: 36415; 51702; 59025; 59409; 82947; 85025; 86592; 86850; 86900; 86901; A9270-GY; J3010; J3490; J7120; J7999